=== PATIENT | male | born 1990 | race Caucasian/White ===

== ENCOUNTER 2018-08-25 14:19 | Emergency (ER) | payer SELFPAY ==
[2018-08-25] MEDS: GI COCKTAIL 50ML BTL(HYOSCYAMINE/MAALOX/LIDOCAINE VISCOUS)(1:3:1) PO (16:45)
[2018-08-25] MEDS: LIDOCAINE 2% JELLY 30 ML TOP (17:30)
[2018-08-25] MEDS ORDERED: CETACAINE SPRAY 5GM As Ordered (17:32)
== END 2018-08-25 18:36 | disposition home or self-care (01) ==
LOC: M ED 14:19
DX: S10.11XA Abrasion of throat, initial encounter (principal)
CPT/HCPCS: 99283